=== PATIENT | male | born 1985 | race Caucasian/White ===

== ENCOUNTER 2017-08-04 17:42 | Emergency (ER) | payer OTHER ==
[~2017-08-04] VITALS: Ht 185.4 cm; Wt 81.6 kg
[2017-08-04 18:35] VITALS: BP 109/67
[2017-08-04] MEDS ORDERED: KETOROLAC TROMETH 60MG/2ML VIAL IM ONE (20:15)
== END 2017-08-04 20:25 | disposition home or self-care (01) ==
LOC: ER 17:42
DX: S20.211A Contusion of right front wall of thorax, initial encounter (principal); W22.8XXA Striking against or struck by other objects, initial encounter; Y93.89 Activity, other specified; Y99.8 Other external cause status; Y92.89 Other specified places as the place of occurrence of the external cause
CPT/HCPCS: 71101; 96372; 99284; J1885